=== PATIENT | male | born 1995 | race Asian ===

== ENCOUNTER 2020-05-23 07:22 | Emergency (ER) | payer SELFPAY ==
[2020-05-23 07:31] VITALS: BP 144/91
[2020-05-23] MEDS ORDERED: FLUORESCEIN 1 MG STRIP OP ONE (07:37)
[2020-05-23] MEDS ORDERED: TETRACAINE 0.5% OPHTH SOLN 4ML OU ONE (07:37)
--- NOTE | 2020-05-23 08:07 | Emergency Department Report ---
ED Eye Problem HPI - General Chief complaint: Eye Problems Stated complaint: PINK EYE Time Seen by Provider: 05/23/20 07:50 Source: patient Mode of arrival: Ambulatory Limitations: No Limitations - History of Present Illness Initial comments: 24-year-old male woke up with left eye redness and irritation this morning. Patient does not wear contact lenses, glasses, denies eye trauma. He denies blurry vision, fever, or photophobia. Patient is an employee here at [employer] - Related Data Previous Rx's Medication Instructions Recorded Last Taken Type Sulfacetamide Sodium 1 - 2 drops OS Q3H 7 Days drops 05/23/20 Unknown Rx [Sulfacetamide Sodium 10%] Allergies Allergy/AdvReac Type Severity Reaction Status Date / Time No Known Allergies Allergy Unverified 05/23/20 07:31 ED Review of Systems ROS: Stated complaint: PINK EYE Other details as noted in HPI Comment: All other systems reviewed and negative ED Past Medical Hx - Past Medical History Previous Medical History?: No - Surgical History Past Surgical History?: No - Social History Smoking Status: Never Smoker Substance Use Type: None - Medications Home Medications: Home Medications Medication Instructions Recorded Confirmed Last Taken Type Sulfacetamide Sodium 1 - 2 drops OS Q3H 7 Days drops 05/23/20 Unknown Rx [Sulfacetamide Sodium 10%] ED Physical Exam - General Limitations: No Limitations - Other Other exam information: General: No acute distress Head: Atraumatic Eyes: Left eye conjunctival injection/redness. Pupils equal and reactive to light. No fluorescein uptake on cornea staining exam (negative for corneal abrasion). Visual acuity left eye 20/30, right eye 20/40, both eyes 20/30. Mild left upper lid swelling extraocular movements intact ENT: Moist mucous membranes Neck: Normal appearance, no midline tenderness Chest: Clear to auscultation bilaterally CV: Regular rate and rhythm Abdomen: Soft, normal bowel sounds, nontender, nondistended, no rebound or guarding Extremity: Normal inspection, full range of motion Neuro: Alert O x 3, no facial asymmetry, speech clear, no gross motor sensory deficit Psych: Appropriate behavior Skin: No rash ED Course Vital Signs 05/23/20 07:29 Temperature 98 F Pulse Rate 92 H Respiratory 18 Rate Blood Pressure 144/91 O2 Sat by Pulse 98 Oximetry ED Medical Decision Making - Medical Decision Making Patient likely has pinkeye. Will be covered with topical antibiotic. Educated about importance of hand hygiene and the fact that he is contagious during active infection Critical Care Time: No Critical care attestation.: If time is entered above; I have spent that time in minutes in the direct care of this critically ill patient, excluding procedure time. ED Disposition Clinical Impression: Conjunctivitis, left eye Disposition: DC- TO HOME OR SELFCARE Is pt being admited?: No Does the pt Need Aspirin: No Condition: Stable Instructions: Conjunctivitis (ED) Additional Instructions: Symptoms of viral conjunctivitis can last 10 to 14 days. Use frequent hand wash and avoid touching eyes and face due to possibility of transmission. Follow-up with your primary care doctor in 3 to 5 days for reevaluation Prescriptions: Sulfacetamide Sodium [Sulfacetamide Sodium 10%] 1 - 2 drops OS Q3H 7 Days drops Time of Disposition: 08:15
== END 2020-05-23 08:25 | disposition home or self-care (01) ==
LOC: ED 07:22
DX: H10.89 Other conjunctivitis (principal)
CPT/HCPCS: 99283

== ENCOUNTER 2020-05-29 13:11 | Outpatient (CLI) | payer BC ==
[2020-05-29 13:57] LABS: Basophils % (Auto) 0.5 % (0.0-1.8); Eosinophils # (Auto) 0.1 K/mm3 (0.0-0.4); Eosinophils % (Auto) 1.8 % (0.0-4.3); Hemoglobin 15.9 gm/dl (11.8-15.2); Lymphocytes # (Auto) 2.1 K/mm3 (1.2-5.4); Lymphocytes % (Auto) 30.2 % (13.4-35.0); Mean Corpuscular HGB Conc 33 % (32-34); Mean Corpuscular Volume 87 fl (84-94); Monocytes # (Auto) 0.8 K/mm3 (0.0-0.8); Monocytes % (Auto) 11.4 % (0.0-7.3); Platelet Count 196 K/mm3 (140-440); Red Cell Distribution Width 13.9 % (13.2-15.2)
[2020-05-29 14:07] LABS: Alanine Aminotransferase 37 units/L (7-56); Albumin 4.5 g/dL (3.9-5); BUN/Creatinine Ratio 18; Blood Urea Nitrogen 14 mg/dL (9-20); Calcium 9.7 mg/dL (8.4-10.2); Chol/HDL Ratio 2.77 %; HDL Cholesterol 66 mg/dL (40-59); Hemolysis Index 15; LDL Cholesterol,Direct 105 mg/dL (50-130)
[2020-05-29 14:27] LABS: Hepatitis B Surface Antigen Non-Reactive (Negative); Hepatitis C Virus Antibody Non-Reactive (NonReactive)
== END 2020-05-29 13:12 | disposition home or self-care (01) ==
LOC: LAB 13:11
PROVIDERS: ATTEND Internal Medicine
DX: Z00.00 Encounter for general adult medical examination without abnormal findings (principal); Z11.3 Encounter for screening for infections with a predominantly sexual mode of transmission; Z13.0 Encounter for screening for diseases of the blood and blood-forming organs and certain disorders involving the immune mechanism
CPT/HCPCS: 36415; 80053; 80061; 80074; 82306; 84443; 85025; 86592; 86689; 87529; 87591